=== PATIENT | female | born 1980 | race Caucasian/White ===

== ENCOUNTER 2017-02-03 19:31 | Emergency (ER) | payer OTHER ==
[~2017-02-03] VITALS: Ht 175.3 cm; Wt 96.4 kg
[~2017-02-03 19:31] MED LIST: METF850T2 PO
[2017-02-03] MEDS ORDERED: METF500T4 PO (20:19)
[2017-02-03 20:22] LABS: GLUCOSE,POINT OF CARE 295 MG/DL (70-110)
[2017-02-03] MEDS ORDERED: MUPIROCIN CALCIUM 2% 22 GM OINTMENT TP ONE (21:30)
[2017-02-03] MEDS ORDERED: KETOROLAC TROMETHAMINE 30 MG/ML VIAL IVP ONE (21:30)
[2017-02-03] MEDS ORDERED: CEFTAROLINE 600 MG/D5W 250 ML IV ONE (21:30)
[2017-02-03 22:20] VITALS: BP 128/78
== END 2017-02-03 23:05 | disposition home or self-care (01) ==
LOC: EMS 19:36
DX: L03.116 Cellulitis of left lower limb (principal); E11.9 Type 2 diabetes mellitus without complications
CPT/HCPCS: 82962; 96365; 96375; 99284; J0712; J1885

== ENCOUNTER 2018-07-30 19:32 | Emergency (ER) | payer OTHER ==
[~2018-07-30] VITALS: Ht 175.3 cm; Wt 101.4 kg
[~2018-07-30 19:32] MED LIST changes: +METF-960 PO; -METF850T2 PO
[2018-07-30 19:54] LABS: GLUCOSE,POINT OF CARE 542 MG/DL (70-110)
[2018-07-30 21:38] VITALS: BP 140/78
== END 2018-07-30 21:46 | disposition home or self-care (01) ==
LOC: EMS 19:33
DX: S05.02XA Injury of conjunctiva and corneal abrasion without foreign body, left eye, initial encounter (principal); E11.9 Type 2 diabetes mellitus without complications; Z79.84 Long term (current) use of oral hypoglycemic drugs; X58.XXXA Exposure to other specified factors, initial encounter; Y93.89 Activity, other specified; Y92.89 Other specified places as the place of occurrence of the external cause; Y99.8 Other external cause status

== ENCOUNTER 2021-03-26 20:57 | Emergency (ER) | payer OTHER ==
[~2021-03-26] VITALS: Ht 175.3 cm; Wt 87.7 kg
[~2021-03-26 20:57] MED LIST changes: +METF-1211 PO; -METF-960 PO
[2021-03-26] MEDS ORDERED: SODIUM CHLORIDE 0.9% 1,000 ML IV ONE ×2 (21:45→23:00)
[2021-03-26 22:04] LABS: BASOPHILS % (AUTO) 0.3 % (0.0-2.0); EOSINOPHILS % (AUTO) 0.3 % (1.0-6.0); HEMATOCRIT 27.2 % (36-46); HEMOGLOBIN 8.4 g/dL (12.0-16.0); LYMPHOCYTES # (AUTO) 0.6 K/uL (1.0-4.8); LYMPHOCYTES % (AUTO) 2.7 % (22.0-44.0); MEAN CORPUSCULAR HEMOGLOBIN 22.4 pg (26.0-34.0); MEAN CORPUSCULAR VOLUME 72 fL (80-100); MONOCYTES % (AUTO) 4.1 % (2.0-9.0); PLATELET COUNT (AUTO) 336 K/uL (150-450); RED BLOOD CELL COUNT(AUTO) 3.76 MIL/uL (4.00-5.20); RED CELL DISTRIBUTION WIDTH 17.3 % (11.5-14.5)
[2021-03-26 22:06] LABS: NEUTROPHILS % (AUTO) 92.6 % (40.0-70.0)
[2021-03-26 22:20] LABS: BILIRUBIN,TOTAL 0.5 mg/dL (0.1-1.0); C-REACTIVE PROTEIN QUANT 21.44 mg/dL (0.00-0.30); CALCIUM, TOTAL 8.4 mg/dL (8.8-10.5); CREATININE 1.47 mg/dL (0.60-1.30); TOTAL PROTEIN, SERUM 7.9 g/dL (6.4-8.2)
[2021-03-26] MEDS ORDERED: VANCOMYCIN HCL 1.5 GM in DEXTROSE 5%-WATER 250 ML IV ONE (22:45)
[2021-03-26] MEDS ORDERED: PIPERACILLIN SODIUM/TAZOBACTAM 4.5 GM in DEXTROSE 5%-WATER 100 ML IV ONE (22:45)
[2021-03-26 23:19] LABS: ERYTHROCYTE SEDIMENTATION RATE 139 MM/HR (0-20)
[2021-03-27] MEDS ORDERED: CLINDAMYCIN 900 MG/D5% WATER 50 ML IV ONE (00:30)
[2021-03-27 01:57] LABS: GLUCOSE,POINT OF CARE 422 MG/DL (70-110)
[2021-03-27] MEDS ORDERED: INSULIN REGULAR, HUMAN 100 UNITS/ML IVP ONE (02:00)
[2021-03-27 02:38] LABS: COVID AG,FIA SOURCE NASOPHARYNGEAL
[2021-03-27 03:21] VITALS: BP 112/73
[2021-03-27 03:33] LABS: GLUCOSE,POINT OF CARE 335 MG/DL (70-110)
[2021-03-27] MEDS ORDERED: KETOROLAC TROMETHAMINE 30 MG/ML VIAL IVP ONE (04:00)
== END 2021-03-27 06:04 | disposition short-term general hospital (02) ==
LOC: EMS 21:00
DX: A41.9 Sepsis, unspecified organism (principal); E11.65 Type 2 diabetes mellitus with hyperglycemia; M72.6 Necrotizing fasciitis; M79.89 Other specified soft tissue disorders; Z20.822 Contact with and (suspected) exposure to COVID-19
CPT/HCPCS: 36415; 73630; 80053; 82962; 83605; 85025; 85651; 86140; 87040; 87426; 96361; 96365; 96366; 96368; 96375; 99291; J1815; J1885; J2543; J3370; J3490; J7030 ×2; J7060 ×2